=== PATIENT | female | born 1975 | race Asian ===

== ENCOUNTER 2018-12-18 22:49 | Inpatient (IN) | payer OTHER ==
[~2018-12-18] VITALS: Ht 167.6 cm; Wt 143.7 kg
[2018-12-18 23:56] LABS: BASOPHILS # (AUTO) 0.04 x10^3/uL (0-0.1); BASOPHILS % (AUTO) 0 % (0-1); EOSINOPHILS # (AUTO) 0.34 x10^3/uL (0-0.4); EOSINOPHILS % (AUTO) 2 % (1-7); LYMPHOCYTES # (AUTO) 2.08 x10^3/uL (1-3.4); LYMPHOCYTES % (AUTO) 14 % (22-44); MD NO; MEAN CORPUSCULAR HEMOGLOBIN 24.2 pg (27.0-34.8); MEAN CORPUSCULAR HGB CONC 31.5 g/dL (32.4-35.8); MEAN CORPUSCULAR VOLUME 76.7 fL (80-100); MEAN PLATELET VOLUME 7.1 fL (7.4-10.4); MONOCYTES # (AUTO) 0.64 x10^3/uL (0.2-0.8); MONOCYTES % (AUTO) 4 % (2-9); NEUTROPHILS # (AUTO) 11.46 x10^3/uL (1.8-6.8); NEUTROPHILS % (AUTO) 79 % (42-75); PLATELET COUNT 313 x10^3/uL (130-400); RED BLOOD COUNT 4.97 x10^6/uL (3.82-5.3); RED CELL DISTRIBUTION WIDTH 17.5 % (9.6-15.2)
[2018-12-19 00:03] LABS: ALBUMIN 3.5 g/dL (3.4-5.0); ANION GAP 6 mmol/L (5-15); CALCIUM 9.1 mg/dL (8.5-10.1); CHLORIDE 108 mmol/L (98-107); CREATININE 0.91 mg/dL (0.55-1.02)
[2018-12-19 00:08] LABS: TROPONIN I < 0.015 ng/mL (0.000-0.045)
[2018-12-19] MEDS ORDERED: CEFTRIAXONE PMX 1GM/50ML 50 ML IV ONE (00:30)
[2018-12-19] MEDS ORDERED: AZITHROMYCIN 500 MG in SODIUM CHLORIDE 0.9% 250 ML IV ONE (00:30)
[2018-12-19] MEDS ORDERED: CEFTRIAXONE PMX 1GM/50ML 50 ML ONE (00:46)
--- NOTE | 2018-12-19 00:56 | NUR ---
Report to Amy HERNANDEZ, pt ready for transport.
[2018-12-19 01:34] VITALS: BP 138/81
[2018-12-19] MEDS ORDERED: ONDANSETRON 2MG/ML, 2ML IVPush PRN (03:00)
[2018-12-19] MEDS ORDERED: IBUPROFEN 600 MG TABLET PO PRN (03:00)
[2018-12-19] MEDS ORDERED: ENALAPRILAT 1.25 MG/ML, 2ML IVPush PRN (03:00)
[2018-12-19] MEDS: AZITHROMYCIN 500 MG in SODIUM CHLORIDE 0.9% 250 ML IV SCH (04:26)
[2018-12-19 06:09] LABS: HEMOGLOBIN A1C 6.1 % (4.2-6.3)
[2018-12-19 06:22] LABS: CHOL/HDL RATIO 2.9; LDL/HDL RATIO 1.6 (0.5-3.0)
[2018-12-19 06:32] VITALS: BP 110/58
[2018-12-19] MEDS: ENOXAPARIN 40 MG/0.4 ML SQ SCH (09:23)
[2018-12-19] MEDS: ACETAMINOPHEN 325 MG TABLET PO PRN (10:03)
[2018-12-19 12:10] VITALS: BP 123/76
[2018-12-19 20:12] VITALS: BP 118/65
[2018-12-20] MEDS: CEFTRIAXONE PMX 1GM/50ML 50 ML IV SCH (00:32)
[2018-12-20 01:50] VITALS: BP 113/77
[2018-12-20] MEDS: AZITHROMYCIN 500 MG in SODIUM CHLORIDE 0.9% 250 ML IV SCH (04:08)
[2018-12-20 05:42] LABS: BASOPHILS # (AUTO) 0.02 x10^3/uL (0-0.1); BASOPHILS % (AUTO) 0 % (0-1); EOSINOPHILS # (AUTO) 0.43 x10^3/uL (0-0.4); EOSINOPHILS % (AUTO) 4 % (1-7); LYMPHOCYTES % (AUTO) 21 % (22-44); MD NO; MEAN CORPUSCULAR HEMOGLOBIN 24.5 pg (27.0-34.8); MEAN CORPUSCULAR HGB CONC 31.6 g/dL (32.4-35.8); MEAN CORPUSCULAR VOLUME 77.5 fL (80-100); MEAN PLATELET VOLUME 7.2 fL (7.4-10.4); MONOCYTES # (AUTO) 0.55 x10^3/uL (0.2-0.8); MONOCYTES % (AUTO) 5 % (2-9); NEUTROPHILS # (AUTO) 7.49 x10^3/uL (1.8-6.8); NEUTROPHILS % (AUTO) 69 % (42-75); PLATELET COUNT 293 x10^3/uL (130-400); RED BLOOD COUNT 4.74 x10^6/uL (3.82-5.3); RED CELL DISTRIBUTION WIDTH 17.5 % (9.6-15.2)
[2018-12-20 08:14] VITALS: BP 117/61
[2018-12-20] MEDS: ENOXAPARIN 40 MG/0.4 ML SQ SCH (08:18)
[2018-12-20] MEDS: IRON SUCROSE COMPLEX 100MG/5ML IV SCH (08:18)
[2018-12-20] MEDS ORDERED: GUAIFENESIN 100 MG/5 ML, 10ML UDC PO PRN (11:30)
[2018-12-20] MEDS: ACETAMINOPHEN 325 MG TABLET PO PRN (13:40)
[2018-12-20 14:22] VITALS: BP 135/81
[2018-12-20 20:04] VITALS: BP 138/64
[2018-12-21] MEDS: CEFTRIAXONE PMX 1GM/50ML 50 ML IV SCH (00:54)
[2018-12-21 01:15] VITALS: BP 107/71
[2018-12-21] MEDS: AZITHROMYCIN 500 MG in SODIUM CHLORIDE 0.9% 250 ML IV SCH (04:43)
[2018-12-21 05:35] LABS: BASOPHILS # (AUTO) 0.06 x10^3/uL (0-0.1); BASOPHILS % (AUTO) 1 % (0-1); EOSINOPHILS # (AUTO) 0.48 x10^3/uL (0-0.4); EOSINOPHILS % (AUTO) 5 % (1-7); LYMPHOCYTES # (AUTO) 1.84 x10^3/uL (1-3.4); LYMPHOCYTES % (AUTO) 20 % (22-44); MD NO; MEAN CORPUSCULAR HEMOGLOBIN 24.2 pg (27.0-34.8); MEAN CORPUSCULAR HGB CONC 31.8 g/dL (32.4-35.8); MEAN CORPUSCULAR VOLUME 76.1 fL (80-100); MEAN PLATELET VOLUME 7.6 fL (7.4-10.4); MONOCYTES # (AUTO) 0.54 x10^3/uL (0.2-0.8); MONOCYTES % (AUTO) 6 % (2-9); NEUTROPHILS # (AUTO) 6.45 x10^3/uL (1.8-6.8); NEUTROPHILS % (AUTO) 69 % (42-75); PLATELET COUNT 306 x10^3/uL (130-400); RED BLOOD COUNT 4.73 x10^6/uL (3.82-5.3); RED CELL DISTRIBUTION WIDTH 17.4 % (9.6-15.2)
[2018-12-21 05:46] LABS: ANION GAP 10 mmol/L (5-15); CALCIUM 8.7 mg/dL (8.5-10.1); CHLORIDE 104 mmol/L (98-107); CREATININE 0.58 mg/dL (0.55-1.02)
[2018-12-21] MEDS: ENOXAPARIN 40 MG/0.4 ML SQ SCH (08:31)
[2018-12-21] MEDS: IRON SUCROSE COMPLEX 100MG/5ML IV SCH (08:31)
[2018-12-21 08:34] VITALS: BP 115/78
[2018-12-21 14:20] VITALS: BP 108/63
[2018-12-21] MEDS ORDERED: CEFD300C37 PO (15:29)
== END 2018-12-21 17:00 | disposition home or self-care (01) | DRG 193 ==
LOC: ED 12-19 00:15 → EDIP 12-19 00:45 → 4NOR 12-19 01:27 → DCLOUNGE 12-21 16:49
PROVIDERS: ADMIT Family Medicine; ATTEND Family Medicine
DX: J18.1 Lobar pneumonia, unspecified organism (principal); J96.01 Acute respiratory failure with hypoxia; Z68.43 Body mass index [BMI] 50.0-59.9, adult; D50.9 Iron deficiency anemia, unspecified; E66.01 Morbid (severe) obesity due to excess calories; F17.200 Nicotine dependence, unspecified, uncomplicated
CPT/HCPCS: 36415; 71045; 80048; 80061; 82040; 82728; 83036; 83540; 83550; 83880; 84443; 84466; 84484; 85025; 87040; 87070; 87205; 93005; 96374; G0378; J0456; J0696; J1650; J1756; J7050

== ENCOUNTER 2020-02-10 20:41 | Emergency (ER) | payer SELFPAY ==
[~2020-02-10] VITALS: Ht 167.6 cm; Wt 155.2 kg
[~2020-02-10 20:41] MED LIST: CEFD300C37 PO
[2020-02-10 21:08] VITALS: BP 176/98
[2020-02-10] MEDS ORDERED: DIPHENHYDRAMINE 25 MG CAPSULE ONE (22:10)
[2020-02-10] MEDS ORDERED: DIPHENHYDRAMINE 25 MG CAPSULE PO ONE (22:30)
== END 2020-02-10 22:35 | disposition home or self-care (01) ==
LOC: ED 20:50
DX: L29.9 Pruritus, unspecified (principal); T78.49XA Other allergy, initial encounter
CPT/HCPCS: 99283; J7512; Q0163